=== PATIENT | male | born 1960 | race Caucasian/White ===

== ENCOUNTER 2017-10-27 19:12 | Emergency (ER) | payer BC ==
[2017-10-27 19:31] VITALS: RESP 20; TEMP 96.9
[2017-10-27] MEDS ORDERED: APAP/HYDROCODONE 325/5 TAB ONE ×2 (19:51→21:29)
[2017-10-27] MEDS ORDERED: CYCLOBENZAPRINE 10 MG TAB ONE (19:51)
[2017-10-27] MEDS: APAP/HYDROCODONE 325/5 TAB PO ONE ×2 (19:52→21:25)
[2017-10-27] MEDS ORDERED: CYCLOBENZAPRINE 10 MG TAB PO ONE (21:00)
[2017-10-27 21:46] VITALS: BP 144/97; PULSE 59; O2SAT 97
== END 2017-10-27 21:30 | disposition home or self-care (01) ==
LOC: ED 19:12
DX: M54.5 Low back pain (principal); M54.89 Other dorsalgia; M21.372 Foot drop, left foot; M21.371 Foot drop, right foot
CPT/HCPCS: 99282; 99283; A9270-GY